=== PATIENT | male | born 1950 | race Caucasian/White ===

== ENCOUNTER 2018-08-07 15:21 | Inpatient (IN) | payer MEDICARE ==
[~2018-08-07] VITALS: Ht 170.2 cm; Wt 124.3 kg
--- OUTSIDE RECORDS SUMMARY | ~2018-08-07 | XMS | Clinical Summary ---
Demographics + + + | Address | [address] | | | [place] [address] | + + + | Home Phone | | + + + | Preferred Language | Unknown | + + + | Marital Status | | + + + | Mormonism Affiliation | Unknown | + + + | Race | Unknown | + + + | Ethnic Group | Unknown | + + + Author + + + | Author | [facility] | + + + | Organization | [facility] | + + + | Address | [...] Team Providers + +------+ + | Care Senior Environmental Consultant Name | Role | Phone | + [...] | | 2019 | Requisition | | Shear Operator [employer] | | +--------+ + + + + [...] +------+-------+ + | MEDICARE | MEDICA | [id number] | | | [address] | | | RE | | | | [place] [address] | | | IP-OP | | | [...] | [place] | | | [phone] | [phone] | + +--------+ +--------+ + +
--- OUTSIDE RECORDS SUMMARY | ~2018-08-07 | XMS | Encounter Summary ---
Demographics + + + | Address | [address] | | | [place] [address] | + + + | Home Phone | | + + + | Preferred Language | Unknown | + + + | Marital Status | | + + + | Jain Affiliation | Unknown | + + + | Race | Unknown | + + + | Ethnic Group | Unknown | + + + Author + + + | Author | [facility] | + + + | Organization | [facility] | + + + | Address | [...] Team Providers + +------+ + | Care Labor Relations Analyst Name | Role | Phone | + [...] | Requisition | [address] | [place] | | | | | [place] [address] | | | | | | [phone] | | | +--------+ + + + [...]
[~2018-08-07 15:21] MED LIST: ACETAMINOPHEN325 M1 PO; BACTRIM DS TAB1 EACH PO; CLINDAMYCIN HC300 MG PO; CYCLOBENZAPRINE10 MG PO; DOXYCYCLINE HY100 MG PO; FLONASE2 SPRAY NS; GABAPENTIN100 MG PO; GABAPENTIN300 MG PO; INDOMETHACIN50 MG PO; LEVAQUIN500 MG PO; LORTAB 5-325 M1 EACH PO; METOPROLOL SUC200 MG PO; METOPROLOL SUCC50 MG PO; MULTI VITAMIN1 EACH PO; NORCO 10-325 T1 EACH PO; OXYCODONE HCL5 MG PO; OXYCODONE-ACET1 EAC1 PO; PIROXICAM20 MG PO; TOPROL XL25 MG PO; VITAMIN B COMP1 EACH PO; XARELTO10 MG PO
[2018-08-07] MEDS ORDERED: PREDNISONE5 MG PO (15:48)
--- OUTSIDE RECORDS SUMMARY | 2018-08-07 18:15 | XMS | Encounter Summary ---
Demographics + + + | Address | [address] | | | [place] [address] | + + + | Home Phone | | + + + | Preferred Language | Unknown | + + + | Marital Status | | + + + | Judaism Affiliation | Unknown | + + + | Race | Unknown | + + + | Ethnic Group | Unknown | + + + Author + + + | Author | [facility] | + + + | Organization | [facility] | + + + | Address | Unknown | + + + | Phone | Unavailable | + + + Support + + +---------+ + | Name | Relationship | Address | Phone | + + +---------+ + | No,Contact | ECON | Unknown | | + + +---------+ + | Message,Detailed | ECON | Unknown | | + + +---------+ + Care Team Providers + +------+ + | Care System Auditor Name | Role | Phone | + +------+ + | Bety Cloud | PCP | Unavailable | + +------+ + Encounter Details +--------+ + + + + | Date | Type | Department | Care Team | Description | +--------+ + + + + | 08/07/ | Lab | [facility] | Amado Pollock, | | | 2019 | Requisition | [address] | Cryptographic Clerk | | | | | [place] [address] | | | | | | [phone] | | | +--------+ + + + + Social History + + + +--------+ + | Tobacco Use | Types | Packs/Day | Years | Date | | | | | Used | | + + + +--------+ + | Former Smoker | Cigarettes | | | Quit: 08/15/1996 | + + + +--------+ + + +---+---+---+ | Smokeless Tobacco: | | | | | Never Used | | | | + +---+---+---+ + + +---------+ + | Alcohol Use | Drinks/We | oz/Week | Comments | | | ek | | | + + +---------+ + | Yes | 3-4 | 1.8 - | a day | | | Cans of | 2.4 | | | | beer | | | + + +---------+ + + + + | Sex Assigned at | Date Recorded | | | | + + + | Not on file | | + + + as of this encounter Plan of Treatment Not on fileas of this encounter Visit Diagnoses Not on filein this encounter"
--- OUTSIDE RECORDS SUMMARY | 2018-08-07 18:15 | XMS | Clinical Summary ---
Demographics + + + | Address | [address] | | | [place] [address] | + + + | Home Phone | | + + + | Preferred Language | Unknown | + + + | Marital Status | | + + + | Judaism Affiliation | Unknown | + + + | Race | Unknown | + + + | Ethnic Group | Unknown | + + + Author + + + | Author | [facility] | + + + | Organization | [facility] | + + + | Address | [...] Team Providers + +------+ + | Care Statuary Painter Name | Role | Phone | + +------+ + | Bety Cloud | PP | Unavailable | + +------+ + Allergies No Known Allergies Current Medications + + +---------+---------+------+------+-------+ | Prescription | Sig. | Disp. | Refills | Star | End | Statu | | | | | | t | Date | s | | | | | | Date | | | + + +---------+---------+------+------+-------+ | metoprolol | Take 50 mg by mouth | | | | | Activ | | (TOPROL-XL) 50 MG 24 | daily. | | | | | e | | hr tablet | | | | | | | + + +---------+---------+------+------+-------+ | fluticasone | 1 spray by Each Nare | | | | | Activ | | (FLONASE) 50 MCG/ACT | route as needed. | | | | | e | | nasal | | | | | | | + + +---------+---------+------+------+-------+ | Multiple | Take by mouth | | | | | Activ | | Vitamins-Minerals | daily. | | | | | e | | (MULTIVITAL PO) | | | | | | | + + +---------+---------+------+------+-------+ | B Complex Vitamins | Take by mouth | | | | | Activ | | (B COMPLEX PO) | daily. | | | | | e | + + +---------+---------+------+------+-------+ | predniSONE | Take 20 mg by mouth | | | | | Activ | | (DELTASONE) 20 MG | daily with | | | | | e | | tablet | breakfast. | | | | | | + + +---------+---------+------+------+-------+ | gabapentin | Take 1 capsule by | 60 | 11 | 10/21 | | Activ | | (NEURONTIN) 300 MG | mouth 2 (two) times | capsule | | / | | e | | capsuleIndications: | daily. | | | 17 | | | | Peripheral | | | | | | | | polyneuropathy, | | | | | | | | Neuropathic pain | | | | | | | + + +---------+---------+------+------+-------+ Active Problems + + + | Problem | Noted Date | + + + | Peripheral neuropathy | 05/07/2014 | + + + | Neuropathic pain | 05/07/2014 | + + + Encounters +--------+ + + + + | Date | Type | Specialty | Care Team | Description | +--------+ + + + + | 08/07/ | Lab | | Amado Pollock, | | | 2019 | Requisition | | Adjunct History Instructor | | +--------+ + + + + from Last 3 Months Family History + + +------+ + | Medical History | Relation | Name | Comments | + + +------+ + | Diabetes type I | Mother | | | + + +------+ + + +------+--------+ + | Relation | Name | Status | Comments | + +------+--------+ + | Mother | | | | + +------+--------+ + Social History + + + +--------+ [...] on file | | + + + Last Filed Vital Signs + + + + | Vital Sign | Reading | Time Taken | + + + + | Blood Pressure | 128/80 | 11/01/2016 1:12 PM PDT | + + + + | Pulse | 60 | 11/01/2016 1:12 PM PDT | + + + + | Temperature | - | - | + + + + | Respiratory Rate | - | - | + + + + | Oxygen Saturation | - | - | + + + + | Inhaled Oxygen | - | - | | Concentration | | | + + + + | Weight | 115.7 kg (255 lb) | 11/01/2016 1:12 PM PDT | + + + + | Height | 172.7 cm (5' 8") | 11/01/2016 1:12 PM PDT | + + + + | Body Mass Index | 38.77 | 11/01/2016 1:12 PM PDT | + + + + Plan of Treatment + + + + + | Health Maintenance | Due Date | Last Done | Comments | + + + + + | Vaccine: | | | | | Dtap/Tdap/Td (1 - | 8 | | | | Tdap) | | | | + + + + + | Colon Cancer | | | | | Screening | 9 | | | | (Colonoscopy) | | | | + + + + + | Vaccine: Zoster (1 | | | | | of 2) | 9 | | | + + + + + | Vaccine: | | | | | Pneumococcal 65+ | 4 | | | | Low/Medium Risk (1 | | | | | of 2 - PCV13) | | | | + + + + + | Vaccine: Influenza | | | | | (#1) | 8 | | | + + + + + Results Not on filefrom Last 3 Months Insurance + +--------+ +------+-------+ + | Payer | Benefi | Subscriber | Type | Phone | Address | | | t Plan | ID | | | | | | / | | | | | | | Group | | | | | + +--------+ +------+-------+ + | MEDICARE | MEDICA | [id number] | | | [address] | | | RE | | | | [place] [address] | | | IP-OP | | | | | + +--------+ +------+-------+ + + +--------+ +--------+ + + | Guarantor Name | Accoun | Relation to | Date | Phone | Billing Address | | | t Type | Patient | of | | | | | | | | | | + +--------+ +--------+ + + | SUMAN SHIELDS | Person | Self | [birth year] Home: | [address] | | | [place] | | [phone] | [phone] | [place] | | | [place] | | | [phone] | + +--------+ +--------+ + +
--- OUTSIDE RECORDS SUMMARY | 2018-08-07 18:15 | XMS | Encounter Summary ---
Demographics + + + | Address | [address] | | | [place] [address] | + + + | Home Phone | | + + + | Preferred Language | Unknown | + + + | Marital Status | | + + + | Tenriism Affiliation | Unknown | + + + | Race | Unknown | + + + | Ethnic Group | Unknown | + + + Author + + + | Author | [facility] | + + + | Organization | [facility] | + + + | Address | [...] Team Providers + +------+ + | Care Whipper Beater Name | Role | Phone | + [...] | Requisition | [address] | Group Underwriter | | | | | [place] [address] | | | | | | [phone] | | | +--------+ + + + [...]
--- OUTSIDE RECORDS SUMMARY | 2018-08-07 18:15 | XMS | Clinical Summary ---
Demographics + + + | Address | [address] | | | [place] [address] | + + + | Home Phone | | + + + | Preferred Language | Unknown | + + + | Marital Status | | + + + | Christianity Affiliation | Unknown | + + + | Race | Unknown | + + + | Ethnic Group | Unknown | + + + Author + + + | Author | [facility] | + + + | Organization | [facility] | + + + | Address | [...] Team Providers + +------+ + | Care Driver Material Handler Name | Role | Phone | + [...] | | 2019 | Requisition | | Filterer | | +--------+ + + + + [...] +------+-------+ + | MEDICARE | MEDICA | [id number] | | | [address] | | | RE | | | | [place] [address] | | | IP-OP | | | [...] | [place] | | | [phone] | [phone] | + +--------+ +--------+ + +
--- NOTE | 2018-08-07 20:06 | NUR ---
RECIEVED REPORT FROM YOVANI ORELLANA. ALL QUESTIONS ANSWERED. WAITING FOR PATIENT TO ARRIVE TO THE FLOOR AT THIS TIME.
--- NOTE | 2018-08-07 20:35 | NUR ---
PT ARRIVED TO ROOM 119 FROM ED ON STRETCHER. WITH 4 STAFF, PT WAS PULLED ACROSS TO THE BED ON PURPLE SLIDE SHEET. PT COMPLAINS OF DISCOMFORT IN BACK, HANDS AND FINGERS, NOTABLE SWEELING IN JOINTS HANDS/FINGERS. BINA, ABLE TO CONVERSE WITH STAFF, HAS PLANS IN THE NEAR FUTURE TO GET HEARING AIDES. LIVES ALONE, RETIRED CONTRACTOR. EDUCATED TO THE ROOM, ROUTINE, CALL LIGHT. ATE 2 VANILLA ICE CREAM, AND DRINKING WATER. DENIED NEED FOR A SANDWICH BOX, PREFERRED TO HAVE "THAIS" ICE CREAM VS A SANDWICH. CALL LIGHT WITHIN REACH. INSTRUCTED TO CALL IF HE NEEDS THE URINAL FOR ASSISTANCE.
--- NOTE | 2018-08-07 22:52 | NUR ---
ROUNDED ON PATIENT RESTING AWAKE IN BED WATCHING TV. PATIENT REPORTS PAIN IS A "7/10". MEDICATION ADMINISTERED PER JUL ORDER. CALL LIGHT WITHIN REACH. MORE NEEDS AT THIS TIME.
--- NOTE | 2018-08-08 00:10 | NUR ---
ASSESSMENT COMPLETE. PATIENT REPORTS PAIN A "7/10" IN HANDS AND FEET, PATIENT DENIES PRN PAIN MEDICATION AT THIS TIME. PATIENT REPORTS HANDS FEEL "PUFFY" AND FEEL "WEAK" AND HAVE "PAIN" WHEN PATIENT TRIES TO CLOSES THEM TIGHTLY. PATIENT DENIES CHEST PAIN, SOB OR DIFFICULTY BREATHING. IV FLUIDS STILL INFUSING PER MAR ORDER. IV ASSESSED, WNL. LOTION APPLIED TO BILATERAL FEET PER REQUEST FROM PATIENT. URINAL AT BEDSIDE. PATIENT AWAKE AND ALERT AND WATCHING TV. CALL LIGHT WITHIN REACH. NO MORE NEEDS AT THIS TIME.
--- NOTE | 2018-08-08 03:10 | NUR ---
ROUNDED ON PATIENT TO ASSIST PATIENT TO RESTROOM WITH 2 PERSON ASSIST WITH GAIT BELT AND FWW. RED ESCORIATION NOTED ON COCCYX/BOTTOM, BARRIER CREAM APPLIED TO AREA. PATIENT SAFELY BACK INTO BED, CALL LIGHT WITHIN REACH. NO MORE NEEDS AT THIS TIME. IV FLUIDS INFUSING PER MAR ORDER. NEW LINENS PLACED ON BED.
--- NOTE | 2018-08-08 04:52 | NUR ---
PATIENT IS RESTING IN BED WITH EYES CLOSED, RR 18. CALL LIGHT IN REACH.
--- NOTE | 2018-08-08 05:06 | NUR ---
PATIENTS VITALS TAKEN AND RECORDED. PATIENT DENIES ANY PAIN. INTAKE AND ASSESEMENT COMPLETED. PATIENTS MORNING MEDICATIONS GIVEN PER ORDER. FRESH ICE WATER PROVIDED. NO FURTHER NEEDS NOTED. CALL LIGHT IN REACH.
--- NOTE | 2018-08-08 05:12 | NUR ---
PATIENT IS NO A REGULAR DIET, TOLERATING WELL, NO COMPLAINS OF NAUSEA. PATIENT IS A 1PA W/FWW. PATIENT STRUGGLES WITH AMBULATION DUE TO SWELLING IN HANDS AND FEET. PATIENT HAS EDEMA BILAT IN HANDS, FEET, AND SHINS. PATIENT HAS AN ORDER FOR PT/OT. IV INFUSING. PATIENT DENIES INTERVENTION FOR PAIN IN HIS HANDS AND FEET. PATIENT IS AAOX3 AND USES CALL LIGHT APPROPRIATELY.
--- NOTE | 2018-08-08 07:27 | NUR ---
BEDSIDE REPORT. DISCUSSED WITH PT IMPORTANCE OF GETTING UP TO CHAIR FOR BREAKFAST. PT SAID HE WOULD RATHER NOT, RN VERBALIZED SAFTY CONCERN OF EATING IN BED AT RECLINED POSITION, PT SAID, "I DONT CARE, I AM NOT GETTING UP, MAYBE TOMORROW." NO OTHER CONCERNS OR REQUESTS.
--- NOTE | 2018-08-08 09:31 | NUR ---
PT AT THIS TIME DENIES NEEDED FURTHER PAIN MEDICATION OTHER THAN TYLENOL GIVEN WITH AM MED PASS, HOWEVER REFUSES TO GET OUT OF BED TO BATHROOM OR TO CHAIR. PT SAID HE WILL WAIT FOR PHYSICAL THERAPY AND WANTS STRONGER PAIN COVERAGE BEFORE WORKING WITH PHYSICAL THERAPY.
--- NOTE | 2018-08-08 12:42 | NUR ---
PT REQUESTS PAIN COVERAGE FOR PHYSICAL THERAPY AT THIS TIME, 10MG PO OXYCODONE ADMINISTERED AT THIS TIME. PT ASKED IF HYDROMORPHONE WAS AVAILABLE. THIS IS NOT ORDERED AT THIS TIME. WILL MONITOR FOR EFFECTIVE EFFECT.
--- NOTE | 2018-08-08 14:09 | NUR ---
STOPPED BY TO CHECK ON PT, HAD FRIEND VISITING. HE IS ALERT, ORIENTED AND HE APPEARS TO [employer].PT HOPING TO GET APPT WITH VP SECURITIES IN [facility] SOON POSSIBLE. FEET AND HANDS HURT AND SWELLING PRESENT. EXTENDED A BLESSING, AND NOTICED HIS IV ALARM GOING OFF. ALERTED REYNA ROBBINS-HE TOLD HER IT WAS HIS WAY OF GETTING HER TO COME. HE BENT HIS ARM WITH IV IN. WILL FOLLOW NEEDED
[2018-08-08] MEDS ORDERED: GABAPENTIN300 MG PO (15:55)
[2018-08-08] MEDS ORDERED: FLONASE ALLERG9.9 ML NAS (15:58)
--- NOTE | 2018-08-08 17:02 | NUR ---
MED REC COMPLETE
--- NOTE | 2018-08-08 17:13 | NUR ---
PT AGREEABLE TO SIT UP TO BEDSIDE FOR DINNER. PT REPORTS HE DOES NOT NEED ANY PAIN MEDICATIONS AT THIS TIME.
--- NOTE | 2018-08-08 18:20 | NUR ---
PT INITIALLY REFUSED TO GET UP THIS AM FOR BREAKFAST. REFUSED GETTING UP TO CHAIR OTHER THAN FOR PHYSICAL THERAPY HE REPORTS PAIN, HE DENIES NEED FOR OXYCODONE OTHER THAN FOR PHYSICAL THERAPY. HE DID AMBULATE IN HALLS WITH PHYSICAL THERAPY, AND WAS WILLING TO SIT UP TO SIDE OF BED FOR DINNER. HE HAS 2+ EDEMA HANDS AND FEET. VOIDING QUANTITY SUFFICIENT. ALERT AND ORIENTED. I.V. INFUSING WNL. TOLERATING MEALS WELL, NO NAUSEA.
--- NOTE | 2018-08-08 19:48 | NUR ---
RECEIVED REPORT FROM DAY SHIFT RN. PATIENT IS RESTING IN BED WATCHING TV. PATIENT DENIES ANY NEEDS AT THIS TIME. CALL LIGHT IN REACH.
--- NOTE | 2018-08-08 21:54 | NUR ---
PATIENT ASSESMENT COMPLETED. PATIENT VITALS TAKEN AND RECORDED. PATIENTS INTAKE AND OUPUT RECORDED. PATIENTS EVENING MEDICATIONS GIVEN PER ORDER. PATIENT RATES PAIN AT A 4/10. PATIENT GIVEN SCHEDULED TYLENOL. PATIENT DENIES THE NEED FOR ADDITIONAL PAIN MEDICATION AT THIS TIME. PATIENT DENIES FURTHER NEEDS AT THIS TIME. CALL LIGHT IN REACH. IV INFUSING PER ORDER.
--- NOTE | 2018-08-08 23:03 | NUR ---
PATIENT IS RESTING IN BED WITH EYES CLOSED. SNORING CAN BE HEARD. BREATHING IS EVEN AND UNLABORED, RR 18. CALL LIGHT IN REACH.
--- NOTE | 2018-08-09 01:57 | NUR ---
PATIENT IS RESTING IN BED WITH EYES CLSOED, RR 18. CALL LIGHT IN REACH.
--- NOTE | 2018-08-09 03:23 | NUR ---
PATIENT IS RESTING IN BED WITH EYES CLSOED, RR 19. CALL LIGHT IN REACH.
--- NOTE | 2018-08-09 03:50 | NUR ---
PATIENT CALLED AND REQUESTED A REFILL ON WATER. PATIENT DENIES ANY FURTHER NEEDS. CALL LIGHT IN REACH.
--- NOTE | 2018-08-09 05:00 | NUR ---
PATIENT RESTED WELL THROUGHOUT THE SHIFT. PATIENT IS ON A REGULAR DIET, TOLERATING WELL, W/NO COMPLAINTS OF NAUSEA. PATIENT HAS ORDER FOR PT/OT. PATIENT HAS IV INFUSING PER ORDER. PATIENT HAS RED COCYX. PATIENTS SWELLING IN HAND AND FEET HAVE DECREASED. PATIENT IS AAOX3 AND USES CALL LIGHT APPROPRIATELY.
--- NOTE | 2018-08-09 06:03 | NUR ---
VITALS TAKEN ANDR RECORDED. INTAKE AND OUPUT RECORDED. PATIENT IS RESTING IN BED WATCHING TV. PATIENT DENIES ANY ANY NEEDS. PERSONNEL PLACEMENT SPECIALIST IN ROOM. CALL LIGHT IN REACH.
--- NOTE | 2018-08-09 07:41 | NUR ---
PATIENT WASHED HANDS AND FACE WITH WARM WASH CLOTH, STATED HE WOULD CONSIDER A SHOWER AT A LATER TIME. PATIENT SITTING UP IN BED, REFUSED TO AMBULATE TO CHAIR STATING THAT "THAT CHAIR IS TOO LOW FOR ME, IM GOING TO JUST SIT ON THE EDGE OF THE BED FOR BREAKFAST INSTEAD." PATIENT CALL LIGHT IN REACH, NO OTHER NEEDS AT THIS TIME.
--- NOTE | 2018-08-09 08:43 | NUR ---
PATIENT ASSESSMENT DONE, PATIENT DENIES PAIN OR NAUSEA AT THIS TIME, ATE 100% OF BREAKFAST. PATIENT REPORTS THAT PAIN IN LEGS IS DECREASING, RIGHT FOOT "FEELS LIKE I'M WEARING A BOOT." MORNING MEDICATIONS GIVEN. PLAN FOR PATIENT TO WORK WITH PT SOON. PATIENT DENIES OTHER NEEDS AT THIS TIME.
--- NOTE | 2018-08-09 11:26 | NUR ---
PATIENT UP TO AMBULATE IN HALLWAY. RECLINER CHAIR EXCHANGED FOR TALLER ONE. PATIENT IS MINIMAL ASSIST WHEN CHAIR/BED HEIGHT IS SLIGHTLY ELEVATED.
--- NOTE | 2018-08-09 12:56 | NUR ---
PATIENT SITTING UP IN BEDSIDE RECLINER, CALL LIGHT IN REACH, FAMILY IN ROOM, RN VALERIO IN ROOM. LINENS CHANGED AND READJUSTED. NO OTHER NEEDS AT THIS TIME.
--- NOTE | 2018-08-09 13:37 | NUR ---
PT UP AMBULATING IN [place] WAS WITH REYNA LUO. HE WANTED ME TO NOTICE HE WAS UP AND WALKING. I ENCOURAGED HIM,WE HAD BRIEF VISIT HE WALKED. WILL FOLLOW NEEDED
--- NOTE | 2018-08-09 15:09 | NUR ---
PATIENT UP TO CHAIR, VISITING WITH FRIENDS. PATIENT WOULD LIKE TO AMBULATE IN HALLWAYS AGAIN THIS AFTERNOON. PATIENT REPORTS BASELINE CHRONIC PAIN 4/10 IN FEET AND HANDS AND DENIES NEEDING ANY MEDICATIONS OTHER THAN SCHEDULED MEDS.
--- NOTE | 2018-08-09 16:46 | NUR ---
THIS RETAIL STORE ASSISTANT ASSISTED PATIENT UP TO SHOWER, PATIENT SHOWERED INDEPENDENTLY WITH SUPERVISION. PATIENT STOOD AT SINK TO SHAVE, PERFORM ORAL CARE, AND BRUSH HAIR. PATIENT BACK IN BEDSIDE RECLINER, RN AT BEDSIDE TO CHECK IV. PATIENT HAS SMALL RED DOTS ACROSS BACK, PATIENT STATED THESE BURNED WHEN WASHED WITH SOAP AND WERE ITCHY. PATIENT CALL LIGHT IN REACH. RN IN ROOM. NO OTHER NEEDS AT THIS TIME.
--- NOTE | 2018-08-09 16:47 | NUR ---
PATIENT HAS AMBULATED HALLWAY AND SHOWERED TODAY. PATIENT HAS DENIES PAIN (IS AT BASELINE) AND HAS DONE WELL ON SCHEDULED TYLENOL AND GABEPENTIN. PATIENT REPORTS THAT HE IS FEELING BETTER. IV IS REMOVED, PATIENT IS TOLERATING PO MEDICATIONS WELL, VOIDING WELL. PATIENT HAD BM TODAY. PLAN FOR PATIENT TO DISCHARGE HOME TOMORROW.
--- NOTE | 2018-08-09 17:42 | NUR ---
PATIENT SITTING UP IN BEDSIDE RECLINER, CALL LIGHT IN REACH. NO OTHER NEEDS AT THIS TIME.
--- NOTE | 2018-08-09 19:54 | NUR ---
ACCOMPANIED PATIENT AMBULATIED AROUND THE HALLWAY X1
--- NOTE | 2018-08-09 20:44 | NUR ---
PT IN BED WATCHING TV. NO C/O PAIN, OR SOB, COOP WITH ASSESSMENT, PT SELF APPLIED LOTION TO UPPER BODY. CALL LIGHT AT BEDSIDE. TOLERATING FLUIDS WELL, NO C/O N/V
--- NOTE | 2018-08-09 23:50 | NUR ---
ROUNDED ON PATIENT TO ANSWER PATIENT CALL LIGHT. URINAL EMPTIED. FRESH ICE WATER PROVIDED TO PATIENT PER PATIENT REQUEST. CALL LIGHT WITHIN REACH. NO MORE NEEDS AT THIS TIME.
--- NOTE | 2018-08-09 23:55 | NUR ---
RESTING, EYES CLOSED ON ROOM AIR. NO C/O PAIN. CALL LIGHT AT BDSIDE
--- NOTE | 2018-08-10 02:37 | NUR ---
AWAKE, WATCHING TV, NO C/O PAIN, CALL LIGHT AT BEDSIDE
--- NOTE | 2018-08-10 04:41 | NUR ---
pt currently awake, no c/o pain, no sob. Voiding qs urine. Tolerating fluids well, Much improved gait and stamine. uses call light appropriately. legs edematous, elevated, Scattered bruising in different healing stages.
--- NOTE | 2018-08-10 07:41 | NUR ---
MORNING ASSESSMENT DONE. PATIENT UP TO BATHROOM TO VOID & BM. PATIENT AMBULATING WITH MINIMAL STANDBY ASSIST AND WALKER. PATIENT SITTING UP TO SIDE OF BED FOR BREAKFAST. PATIENT RATES PAIN 5/10 AND HAS BASELINE PAIN OF 4/10, DENIES NEED FOR PAIN MEDICATION.
--- NOTE | 2018-08-10 10:03 | NUR ---
PATIENT RESTING IN BED AFTER BREAKFAST. 0900 MEDICATIONS GIVEN, PATIENT DENIES OTHER NEEDS AT THIS TIME.
[2018-08-10] MEDS ORDERED: METOPROLOL SUC200 MG PO (10:24)
[2018-08-10] MEDS ORDERED: PREDNISONE20 MG PO (10:26)
--- NOTE | 2018-08-10 10:53 | NUR ---
PATIENT GIVEN DISCHARGE INSTRUCTIONS, QUESTIONS ANSWERED. PATIENT IS CALLING FOR FRIEND TO GIVE HIM A RIDE HOME.
--- NOTE | 2018-08-10 16:54 | NUR ---
FAXED CHART NOTES INCLUDING FACE SHEET, H AND P, PROG NOTES, DC SUMMARY AND PACKET, PT AND OT EVAL AND NOTE TO [facility] FOR PT, OT, AND RN SERVICES. RECIEVED A FAX CONFIRMATION.
== END 2018-08-10 13:03 | disposition home or self-care (01) | DRG 683 ==
LOC: ED 15:21 → MS 19:39
PROVIDERS: ADMIT Student in an Organized Health Care Education/Training Program
DX: N17.9 Acute kidney failure, unspecified (principal); D68.0 Von Willebrand disease; I12.9 Hypertensive chronic kidney disease with stage 1 through stage 4 chronic kidney disease, or unspecified chronic kidney disease; N18.3 Chronic kidney disease, stage 3 (moderate); M13.0 Polyarthritis, unspecified; G62.9 Polyneuropathy, unspecified; Z85.828 Personal history of other malignant neoplasm of skin; D72.829 Elevated white blood cell count, unspecified
CPT/HCPCS: 36415; 73630; 80048; 80053; 81001; 82550; 83735; 85025; 85651; 86140; 87088; 96361; 96374; 96375; 97162; 97165; 97530; 99284-25; J1170; J1650; J2930; J7030; J7040; J7120; J7512

== ENCOUNTER 2022-02-09 08:59 | Day surgery (SDC) | payer MEDICARE ==
[~2022-02-09] VITALS: Ht 172.7 cm; Wt 117.3 kg
[~2022-02-09 08:59] MED LIST changes: +FEBUXOSTAT40 MG PO; +FLONASE ALLERG9.9 ML NAS; +FUROSEMIDE40 MG PO; +K-TAB ER20 MEQ PO; +PREDNISONE20 MG PO; +PREDNISONE5 MG PO; +TERBINAFINE HC250 MG PO
[2022-02-09] MEDS ORDERED: BIOTIN5 MG PO (09:41)
[2022-02-09] MEDS ORDERED: SAW PALMETTO160 MG PO (09:41)
[2022-02-09] MEDS ORDERED: CENTRUM ADULTS1 EACH PO (09:41)
[2022-02-09] MEDS ORDERED: ALLEGRA ALLERGY60 MG PO (09:42)
--- NOTE | 2022-02-09 11:00 | NUR ---
02/09/22 1100 Ludivina Mendoza PT TO PACU ALERT AND AWAKE DENIES PAIN OR NAUSEA.
--- NOTE | 2022-02-10 09:48 | OR ---
[facility] [address], [place] [address] Signed DATE OF OPERATION: 02/09/2022 SURGEON: Valeria Madison MD PREOPERATIVE DIAGNOSES: 1. Positive Cologuard test. 2. 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 POSTOPERATIVE DIAGNOSES: 1. Significant sigmoid and left-sided diverticulosis. 2. Polyps x3 (excised). PROCEDURES: Total colonoscopy to cecum with cold snare polypectomy x2. Cold morcellation polypectomy x1. ANESTHESIA: Intravenous sedation fentanyl 100 mcg and Versed 7 mg. INDICATION: This 71-year-old white man is a patient of ROSHAN Alarcon. He underwent a Cologuard test which was positive back in February 2021. Additionally, he has undergone excision of a posterior skin lesion which was proven to be squamous cell carcinoma by Dermatology mid-level provider. Reexcision was anticipated. He is not yet scheduled to do that, that was anticipated to do so in my office. He is here today to undergo colonoscopy on the basis of his positive Cologuard test. He understands the risks of bleeding, infection, and perforation related to colonoscopy and wished to proceed. FINDINGS: The prep was good. Complete colonoscopy was undertaken of the cecum. There were three polyps in total, all of them small and none of them appeared malignant. One was in the cecum, the other in right mid colon and the other in the proximal descending colon. Addition, he had large diverticular changes of sigmoid and left colon. There were no other findings of concern. PROCEDURE IN DETAIL: The patient was brought to the endoscopy suite and placed in lateral decubitus position, given intravenous sedation to the point of slurred speech and nystagmus. Full cardiopulmonary monitoring was maintained. Digital rectal examination was undertaken. An Olympus video colonoscope was passed in the rectum and manipulated into the sigmoid Electronically Signed By: VALERIA MADISON MD 02/10/22 0948 PATIENT NAME: ARTHUR CHAUDHARI OPERATIVE REPORT DATE OF : 46 REPORT #: [id number] PHYSICIAN: VALERIA MADISON MD PCP: [facility] PAC REPORT IS CONFIDENTIAL AND NOT TO BE RELEASED WITHOUT AUTHORIZATION [facility] [address], [place] [address] Signed where numerous diverticula were seen. The scope was ultimately advanced to the cecum. The ileocecal valve and appendiceal orifice were easily identified not far from the appendiceal orifice was a small polyp likely adenomatous. It was excised with cold morcellation technique. The scope was withdrawn and in the mid right colon was a somewhat larger sessile polyp. It was excised with cold snare technique and passed for pathology as well. Further withdrawal of scope showed a small similar such lesion in the proximal descending colon which was excised with cold snare technique as well. Once again, diverticular changes were seen in the sigmoid. Retroflexed view of the rectum was normal. Scope was removed. The patient was taken to recovery room in good condition. CONCLUDING DIAGNOSIS: Polyps x3 and diverticulosis. PLAN: We would recommend repeat colonoscopy in 5 years, sooner if clinically indicated. Appointment will be made in the office for re-excision of the squamous cell carcinoma that was excised with uncertain margins at a Dermatology clinic. Valeria Madison MD JM/MODL /[id number] cc: ROSHAN Alarcon Copies: ~ Electronically Signed By: VALERIA MADISON MD 02/10/22 0948 PATIENT NAME: ARTHUR CHAUDHARI OPERATIVE REPORT DATE OF : 46 REPORT #: [id number] PHYSICIAN: VALERIA MADISON MD PCP: [facility] PAC REPORT IS CONFIDENTIAL AND NOT TO BE RELEASED WITHOUT AUTHORIZATION
--- NOTE | 2022-02-12 12:10 | PATH ---
[facility] [address], [place] [address] Signed SPECIMEN(S): A CECAL POLYP SPECIMEN(S): B ASCENDING/RIGHT COLON POLYP SPECIMEN(S): C DESCENDING/LEFT COLON POLYP SPECIMEN SOURCE: A. CECAL POLYP B. ASCENDING/RIGHT COLON POLYP C. DESCENDING/LEFT COLON POLYP CLINICAL HISTORY: Positive Cologuard test. Postop diagnosis: Diverticuli, polyps x 3 FINAL PATHOLOGIC DIAGNOSIS: A. Cecal polyp: - Tubular adenoma (one fragment). B. Ascending / right colon polyp: - Tubular adenoma (one fragment). C. Descending / left colon polyp: - Tubular adenoma (one fragment). JVR:[id number] MICROSCOPIC EXAMINATION: Histologic sections of all submitted blocks are examined by light microscopy. These findings, together with the gross examination, support the pathologic diagnosis. GROSS DESCRIPTION: Three specimens are received in three containers, labeled "WR." A. The specimen, labeled "WR," per the requisition "cecal polyp," is received in formalin and consists of two shaffer soft tissue fragments that measure 0.2 cm in greatest dimension. The specimen is entirely submitted in cassette (A1). B. The specimen, labeled "WR," per the requisition "ascending/right colon polyps," is received in formalin and consists of one shaffer soft tissue fragment that measures 0.4 cm in greatest dimension. The specimen is entirely submitted in cassette (B1). C. The specimen, labeled "WR," per the requisition, "descending/left colon polyp," is received in formalin and consists of one shaffer soft polypoid tissue fragment that measures 0.6 cm in greatest dimension. The specimen is entirely submitted in cassette (C1). CA (under the direct supervision of a pathologist) PATIENT NAME: ARTHUR CHAUDHARI PATHOLOGY DATE OF : 46 REPORT #: [id number] PHYSICIAN: MALCOLM ORTIZ PCP: [facility] REPORT IS CONFIDENTIAL AND NOT TO BE RELEASED WITHOUT AUTHORIZATION [facility] [address], [place] [address] Signed The Gross Description was prepared using a voice recognition system. The report was reviewed for accuracy; however, sound-alike word errors, addition and/or deletions may occur. If there is any question about this report, please contact Client Services. PERFORMING LABORATORY: The technical component was performed by [facility] [employer], [address] [place] [id number] (CLIA# [id number]). Professional interpretation was performed by [facility] - [facility], [address] [place] [id number] (CLIA#: [id number]). Diagnostician: David Roberts MD Pathologist Electronically Signed 02/12/2022 Copies: ~ PATIENT NAME: ARTHUR CHAUDHARI PATHOLOGY DATE OF : 46 REPORT #: [id number] PHYSICIAN: MALCOLM ORTIZ PCP: [facility] PAC REPORT IS CONFIDENTIAL AND NOT TO BE RELEASED WITHOUT AUTHORIZATION
== END 2022-02-09 11:35 | disposition home or self-care (01) ==
LOC: DS 08:59 → OPS 08:59 → DS 13:00 → OPS 13:00
PROVIDERS: ATTEND Surgery
PROC: 0DBK8ZX Excision of Ascending Colon, Via Natural or Artificial Opening Endoscopic, Diagnostic (ICD-10-PCS; 2022-02-09)
PROC: 0DBM8ZX Excision of Descending Colon, Via Natural or Artificial Opening Endoscopic, Diagnostic (ICD-10-PCS; 2022-02-09)
PROC: 0DBH8ZX Excision of Cecum, Via Natural or Artificial Opening Endoscopic, Diagnostic (ICD-10-PCS; principal; 2022-02-09 10:40)
DX: D12.0 Benign neoplasm of cecum (principal); D12.2 Benign neoplasm of ascending colon; D12.4 Benign neoplasm of descending colon; K57.30 Diverticulosis of large intestine without perforation or abscess without bleeding; R19.5 Other fecal abnormalities; C44.529 Squamous cell carcinoma of skin of other part of trunk; L57.9 Skin changes due to chronic exposure to nonionizing radiation, unspecified
CPT/HCPCS: 88305; 99153; G0500; J0690; J2250; J3010; J7121